=== PATIENT | female | born 1950 ===

== ENCOUNTER 2017-11-11 11:25 | Day surgery (SDC) | payer MEDICARE, MEDICAID ==
[2017-11-11] MEDS ORDERED: PROPOFOL 200 MG/20 ML BOTTLE IV ONE (11:26)
[2017-11-11] MEDS ORDERED: ATROPINE SULFATE 1 MG/ML VIAL IV ONE (11:26)
[2017-11-11] MEDS ORDERED: IV NORMAL SALINE 1000 ML BAG IV ONE (11:26)
[2017-11-11] MEDS ORDERED: LIDOCAINE HCL 1% 20 ML VIAL MC ONE (11:26)
[2017-11-11] MEDS ORDERED: GLYCOPYRROLATE 0.2 MG/ML VIAL MC ONE (11:26)
[2017-11-11 12:04] LABS: BASOPHILS % (AUTO) 0.5 % (0.0-2.0); EOSINOPHILS # (AUTO) 0.1 K/uL (0.0-0.7); EOSINOPHILS % (AUTO) 1.9 % (0.0-7.0); HEMATOCRIT 45.1 % (31.2-41.9); HEMOGLOBIN 15.2 g/dL (10.9-14.3); LYMPHOCYTES # (AUTO) 2.6 K/uL (20.0-40.0); LYMPHOCYTES % (AUTO) 35.1 % (20.5-51.5); MEAN CORPUSCULAR HEMOGLOBIN 30.4 uug (24.7-32.8); MEAN CORPUSCULAR HGB CONC 34 g/dL (32.3-35.6); MEAN CORPUSCULAR VOLUME 89.9 fL (75.5-95.3); MONOCYTES # (AUTO) 0.6 K/uL (2.0-10.0); MONOCYTES % (AUTO) 7.7 % (0.0-11.0); NEUTROPHILS # (AUTO) 4.1 K/uL (1.8-8.9); NEUTROPHILS % (AUTO) 54.8 % (38.5-71.5); PLATELET COUNT (AUTO) 148 K/uL (179-408); RED BLOOD CELL COUNT(AUTO) 5.01 MIL/uL (3.63-4.92); WHITE BLOOD COUNT (AUTO) 7.5 K/uL (3.8-11.8)
[2017-11-11 12:05] LABS: *BILIRUBIN,URIN NEGATIVE (NEGATIVE); *BLOOD, URINE NEGATIVE (NEGATIVE); *CLARITY,URINE CLEAR (CLEAR); *COLOR,URINE YELLOW (YELLOW); *KETONES,URINE 1+ (NEGATIVE); *PROTEIN,URINE NEGATIVE (NEGATIVE); *UROBILINOGEN,URINE 0.2 E.U./dl (NORMAL); LEUKOCYTE ESTERASE ,URINE 1+ (NEGATIVE); NITRITE, URINE NEGATIVE (NEGATIVE); UGLUCOSE NEGATIVE (NEGATIVE)
[2017-11-11 12:11] LABS: BACTERIA,URINE FEW /HPF (NONE SEEN); SQUAMOUS EPITHELIAL CELL,UR FEW /HPF (NONE SEEN)
[2017-11-11 12:12] LABS: CREATININE 0.6 mg/dL (0.6-1.3); POTASSIUM 3.8 mmol/L (3.5-5.1)
== END 2017-11-11 15:40 | disposition home or self-care (01) ==
LOC: DS 11:25
PROVIDERS: ATTEND Internal Medicine Gastroenterology
DX: Z12.11 Encounter for screening for malignant neoplasm of colon (principal); D12.5 Benign neoplasm of sigmoid colon; I10 Essential (primary) hypertension; E78.5 Hyperlipidemia, unspecified; Z85.3 Personal history of malignant neoplasm of breast; Z98.890 Other specified postprocedural states; Z79.899 Other long term (current) drug therapy; D69.6 Thrombocytopenia, unspecified
CPT/HCPCS: 36415; 71045; 85025; 85730; 93005; A4217; A4663; J0461; J3490; J7030; J7120